=== PATIENT | male | born 1995 | race Caucasian/White ===

== ENCOUNTER → 2019-02-25 | Outpatient (CLI) | payer OTHER ==
--- NOTE | 2019-02-25 14:45 | REP ---
Chest x-ray: Two views. History: Shortness of breath. Fever. No comparison study. Findings: There is a heterogeneous fairly dense infiltrate in the left upper lobe consistent with pneumonia. Remaining lung jimenez are clear. Pleural angles are sharp. Heart size is normal. Impression: Fairly large heterogeneous infiltrate in the left upper lobe consistent with pneumonia. Electronically Signed by Deric Lamas MD 02/25/2019 02:36 P
== END ==
LOC: M LRY 14:09
PROVIDERS: ATTEND Nurse Practitioner Family
DX: R91.8 Other nonspecific abnormal finding of lung field (principal)
CPT/HCPCS: 71046; 87804; 87880; 94640; G0463

== ENCOUNTER → 2019-02-25 | Outpatient (REF) | payer OTHER | LOC: M SFHCLERA 13:23 | PROVIDERS: ATTEND Nurse Practitioner Family | DX: R50.9 Fever, unspecified (principal); R07.0 Pain in throat ==